=== PATIENT | female | born 1990 | race Caucasian/White ===

== ENCOUNTER → 2025-01-22 | Outpatient (CLI) | payer SELFPAY | END | disposition home or self-care (01) | LOC: LABSPEC 11:26 | PROVIDERS: Referring Provider Advanced Practice Midwife; Visit Provider Advanced Practice Midwife | DX: Z34.00 Encounter for supervision of normal first pregnancy, unspecified trimester (principal) | CPT/HCPCS: 87086; 87088 ==

== ENCOUNTER → 2025-02-08 | Outpatient (CLI) | payer SELFPAY | END | disposition home or self-care (01) | PROVIDERS: Referring Provider Obstetrics & Gynecology; Visit Provider Obstetrics & Gynecology | DX: R30.0 Dysuria (principal) | CPT/HCPCS: 36415; 82950; 86703; 86780; 87086; 87088 ==

== ENCOUNTER → 2025-02-19 | Outpatient (CLI) | payer SELFPAY ==
[2025-02-19 16:41] LABS: Hematocrit 34.2 % (37-47); Hemoglobin 11.4 g/dL (12.0-15.0); Immature Granulocytes Count 0.120 X10^3/uL (0.0-0.0); Mean Corp Hgb Conc 33.3 g/dL (32-36); Mean Corpuscular Volume 93.4 fL (81-99); Mean Platelet Vol. 12.4 fl (6.2-12.0); NRBC Flagged by Analyzer 0 % (0-5); Platelet Count 179 K/mm3 (150-450); RBC Distribution Width CV 12.7 % (11.6-14.6); RBC Distribution Width SD 43.8 fl (35.1-43.9); Red Blood Count 3.66 M/mm3 (4.2-5.4); White Blood Count 10.0 K/mm3 (4.4-11.0)
[2025-02-19 17:36] LABS: Glucose Challenge Gest 1H 50g 132 mg/dL (70-140); HIV Nonreactive (Nonreactive); Syphilis Antibodies Nonreactive (Nonreactive)
== END | disposition home or self-care (01) ==
PROVIDERS: Advanced Practice Midwife; Visit Provider Obstetrics & Gynecology
DX: Z34.92 Encounter for supervision of normal pregnancy, unspecified, second trimester (principal); Z13.1 Encounter for screening for diabetes mellitus
CPT/HCPCS: 36415; 82950; 85025; 86703; 86780

== ENCOUNTER → 2025-04-16 | Outpatient (CLI) | payer MEDICAID, SELFPAY | END | disposition home or self-care (01) | LOC: LABSPEC 15:54 | PROVIDERS: Referring Provider Advanced Practice Midwife; Visit Provider Advanced Practice Midwife | DX: Z34.03 Encounter for supervision of normal first pregnancy, third trimester (principal) | CPT/HCPCS: 87081 ==

== ENCOUNTER 2025-04-27 13:40 | Outpatient (CLI) | payer MEDICAID, SELFPAY ==
[2025-04-27 13:50] VITALS: RESP 18; TEMP 37.3
[2025-04-27 13:54] VITALS: BMI 24.9
[2025-04-27 13:57] VITALS: BP 114/59; PULSE 78
[2025-04-27 14:28] LABS: ROM Internal Control Test YES-OK TO RESULT pt. (Internal QC); ROM Patient Test Negative (Negative); Record Kit Lot#, ROM+ K3358
--- NOTE | 2025-04-27 15:01 | OB.TRI.PN_ITS ---
Progress Notes Date of Service: 04/27/25 Progress Note: Patient presents for triage evaluation secondary to decreased movement at 38.0 weeks FHT: 135 Moderate variability reactive no decelerations category I tracing [place]: occasional Contractions Assessment and plan: rom -, Reactive NST, reassuring maternal and status patient discharged to home to follow-up in office . See problem list details for additional plan information. Laboratory Studies: Laboratory Tests 04/27/25 Range/Units 14:15 Vag Amniotic Fld Detect Negative (Negative) Charges/Coding Multi Select Codes Urinary/Genital Urinary/Genital CPT Codes: 01863-36 non-stress test Interp Assessment & Plan (1) Decreased movement: COMMENT: reactive NST (2) UTI in : COMMENT: if second culture is pos, will need continuous abx in . culture collected 02/08 (3) Former smoker: COMMENT: Quit 2023, vaped intermittently (4) Supervision of normal first : COMMENT: PRR , girl Linda SYLVESTER 05/11/25, support person EMORY Gu(lives in [place]-[facility]) (5) : QUALIFIERS: Weeks of gestation: 37 weeks Qualified Code(s): Z3A.37 - 37 weeks gestation of COMMENT: GBS neg, NIPT, low risk, female, nl anatomy
== END 2025-04-27 15:05 | disposition home or self-care (01) ==
LOC: WPOUT 13:49 → WP 13:49
PROVIDERS: Referring Provider Advanced Practice Midwife; Visit Provider Advanced Practice Midwife
DX: O36.8130 Decreased fetal movements, third trimester, not applicable or unspecified (principal); Z3A.37 37 weeks gestation of pregnancy; Z87.891 Personal history of nicotine dependence
CPT/HCPCS: 59025; 59050; 84112; 99221; G0378

== ENCOUNTER 2025-05-06 10:54 | Inpatient (IN) | payer MEDICAID, SELFPAY ==
[2025-05-06] VITALS (45 sets, daily range): BP systolic 104–125; BP diastolic 60–75; PULSE 59–87; RESP 16; TEMP 36.7–37.4; O2SAT 96–100; BMI 24.7
[2025-05-06 11:56] LABS: Hematocrit 37.5 % (37-47); Hemoglobin 13.1 g/dL (12.0-15.0); Immature Granulocytes Count 0.100 X10^3/uL (0.0-0.0); Mean Corp Hgb Conc 34.9 g/dL (32-36); Mean Corpuscular Volume 89.1 fL (81-99); Mean Platelet Vol. 12.0 fl (6.2-12.0); NRBC Flagged by Analyzer 0 % (0-5); Platelet Count 184 K/mm3 (150-450); RBC Distribution Width CV 13.0 % (11.6-14.6); RBC Distribution Width SD 42.3 fl (35.1-43.9); Red Blood Count 4.21 M/mm3 (4.2-5.4); White Blood Count 13.7 K/mm3 (4.4-11.0)
[2025-05-06 12:48] LABS: Syphilis Antibodies Nonreactive (Nonreactive)
--- NOTE | 2025-05-06 15:13 | HP.PCM.OB_ITS ---
HPI - General General Date of Admission: 05/06/25 HPI Narrative NAGELA CARSON, is a 35 F who presents IAL regular ctx no vb lof good fm Maternal Data Information SYLVESTER Calculator Estimated Delivery Date Method Current WG Current Estimate 05/11/25 LMP (Certain) 39w 2d PFSH PFSH Home Medications ?Medication ?Instructions ?Recorded ?Last Taken ?Type multivit-min no.71-iron fum 28 cap PO 01/14/25 5 History mg-folate no.1 1 mg-dha 300 mg capsule (PNV-[place]) Allergy/AdvReac Type Severity Reaction Status Date / Time morphine Allergy Intermediate itching Verified 05/06/25 11:49 Family History Uncle Diabetes Paternal Surgical History Black teeth extracted History of tonsillectomy History of appendectomy Social History adopted: No household members: none housing: apartment current occupational status: employed 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, 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 current occupational exposures/hazards: No pets and animals: Yes pets and animals: dog(s) history of recent travel: Yes ([place]) out of state: Yes out of country: No Smoking Status: Former smoker quit date: 03/22/25 Electronic Cigarette Use: with nicotine alcohol intake: former year quit: 2022 substance use type: does not use well-balanced diet: daily or most days caffeine: No eating out: rarely or never during the past year weight has: increased > 10 lbs what type of physical activity do you participate in: walking and yoga frequency: 5-6 times per week duration: 15-30 minutes/day zeinab/quaker: None seatbelt use: always do you feel safe at home: Yes additional [facility] history[facility] to [facility] was History 1 Elective abortions Hx Para 0 Spontaneous abortions Hx # Term Pregnancies Ectopic pregnancies Hx # Pregnancies Multiple births # of living children Visit Details Expected Delivery Route/Plan Labor Preferences- CB/BF classes: [] labor support person: [] labor intervention preferences: [] pain management options preferred: [] cut cord/dad catch: [] : [] PP control planned: [] discussed possible routes of delivery and associated risks: [] special requests: [] Plans Covid status: [] Flu vaccine: [] Tdap vaccine: given Rhogam: na LARC form signed: declined movement and labor precautions reviewed. Problem list reviewed and updated with the most current plan of care details and appropriate orders placed. Relevant counseling for the gestational age provided. Continue routine care and follow up unless otherwise noted in visit notes/problem list details OB Flowsheet Initial Weight: 134 lb Date -?-?-?-?-?-?-?-?-?-?-?-?- EGA Weight BP Urine Prot -?-?-?-?-?-?-?-?-?-?-?-?- Glucose FHR FuHt Pres Dilation -?-?-?-?-?-?-?-?-?-?-?-?- Effaced St Visit Note 01/22/25 -?-?-?-?-?-?-?-?-?--?-?-?- 24w 3d 134 lb 8 oz (+8 oz) 111/66 -?-?-?-?-?-?-?-?-?-?-?-?- 140 24 -?-?-?-?-?-?-?-?-?-?-?-?- KW- transfer of care from [facility] and anatomy US reviewed. many questions answered today. feeling FM. no vb/cramping. discussed CBE classes and glucose next visit. 02/08/25 -?-?-?-?-?-?-?-?-?-?-?-?- 26w 6d 139 lb 6 oz (+5 lb 6 oz) 111/69 Negative -?-?-?-?-?-?-?-?-?-?-?-?- Negative 141 26 -?-?-?-?-?-?-?-?-?-?-?-?- JV- pt was at [facility] for dec fm. They do not have an L&D so only did heart tones. She does have an anterior placenta. She requests an ultrasound at 36 weeks. pt reassured. doing clean catch today for urinary frequency and mild dysuria. Had UTI earlier in in [place], so if this is another one will need continuous abx. 02/19/25 -?-?-?-?-?-?-?-?-?-?-?-?- 28w 3d 139 lb 6 oz (+5 lb 6 oz) 109/72 Negative -?-?-?-?-?-?-?-?-?-?-?-?- Negative 145 28 -?-?-?-?-?-?-?-?-?-?-?-?- SM- no vb lof go od fm no regular ctx questions answered 03/05/25 -?-?-?-?-?-?-?-?-?-?-?-?- 30w 3d 145 lb (+11 lb) 103/67 Negative -?-?-?-?-?-?-?-?--?-?-?-?- Negative 130 30 -?-?-?-?-?-?-?-?-?-?-?-?- KW- CBE classes and baby shower soon. no vb/lof/ctx. good movement. has ped picked out. 03/19/25 -?-?-?-?-?-?-?-?-?-?-?-?- 32w 3d 149 lb 8 oz (+15 lb 8 oz) 109/65 Negative -?-?-?-?-?-?-?-?-?-?-?-?- Negative 145 32 -?-?-?-?-?-?-?-?-?-?-?-?- KW- no vb/lof/ct x. good fm. Tdap and LARC many questions answered. 04/02/25 -?-?-?-?-?-?-?-?-?-?-?-?- 34w 3d 146 lb 9 oz (+12 lb 9 oz) 112/71 Negative -?-?-?-?-?-?-?-?-?-?-?-?- Negative 155 33 -?-?-?-?-?-?-?-?-?-?-?-?- SM- no vb lof go od fm n oregular ctx struggling with sleep 04/16/25 -?-?-?-?-?-?-?-?-?-?-?-?- 36w 3d 150 lb 2 oz (+16 lb 2 oz) 107/58 Negative -?-?-?-?-?-?-?-?-?-?-?-?- Negative 160 35 Cephalic 1 -?-?-?-?-?-?-?-?-?-?-?-?- 80 -2 KW- no vb/ lof/ctx. good fm. GBS today. 04/23/25 -?-?-?-?-?-?-?-?-?-?-?-?- 37w 3d 153 lb 2 oz (+19 lb 2 oz) 109/67 Negative -?-?-?-?-?-?-?-?-?-?-?-?- Negative 145 36 Cephalic 1 -?-?-?-?-?-?-?-?-?-?-?-?- 80 -2 KW- no vb/ lof/ctx. good fm. 04/30/25 -?-?-?-?-?-?-?-?-?-?-?-?- 38w 3d 155 lb (+21 lb) 120/75 Negative -?-?-?-?-?-?-?-?-?-?-?-?- Negative 155 38 Cephalic 1 -?-?-?-?-?-?-?-?-?-?-?-?- 80 -2 KW- no vb/ lof/ctx. good fm NST FHR Rate Baby A Baseline: 140 Variability:: Moderate Accelerations:: 15 x 15 Decelerations:: None NST Reactive:: Yes FHR Category:: Category I Uterine Activity:: q3-5 ROS Constitutional Constitutional: Reports systems reviewed and no addt'l complaints, except as documented ENT HEENT: Reports systems reviewed and no addt'l complaints, except as documented Cardiovascular Cardiovascular: Reports systems reviewed and no addt'l complaints, except as documented Respiratory/Chest Respiratory/Chest: Reports systems reviewed and no addt'l complaints, except as documented Gastrointestinal Gastrointestinal: Reports systems reviewed and no addt'l complaints, except as documented and nausea; Denies abdominal pain Genitourinary Genitourinary: Reports systems reviewed and no addt'l complaints, except as documented, contractions Details: present and frequency (regular ) and movement Details: present Musculoskeletal Musculoskeletal: Reports systems reviewed and no addt'l complaints, except as documented Integumentary Integumentary: Reports as per HPI Neurologic Neurologic: Reports systems reviewed and no addt'l complaints, except as documented Endocrine Endocrinology: Reports systems reviewed and no addt'l complaints, except as documented Vital Signs Vital Signs Vital Signs: 05/06/25 10:36 05/06/25 10:36 05/06/25 10:39 Temperature Temperature Source Pulse Rate 87 Respiratory Rate Blood Pressure 123/75 H BP Systolic 123 BP Diastolic 75 Pulse Ox 100 05/06/25 10:39 05/06/25 10:41 05/06/25 10:41 Temperature Temperature Source Pulse Rate 75 79 Respiratory Rate Blood Pressure BP Systolic BP Diastolic Pulse Ox 97 05/06/25 10:42 05/06/25 10:42 05/06/25 10:42 Temperature Temperature Source Tympanic Pulse Rate Respiratory Rate 16 Blood Pressure BP Systolic BP Diastolic Pulse Ox 98 05/06/25 10:42 05/06/25 10:46 05/06/25 10:46 Temperature 98.3 F Temperature Source Pulse Rate 83 Respiratory Rate Blood Pressure BP Systolic BP Diastolic Pulse Ox 99 05/06/25 10:51 05/06/25 10:51 05/06/25 10:56 Temperature Temperature Source Pulse Rate 86 78 Respiratory Rate Blood Pressure BP Systolic BP Diastolic Pulse Ox 97 05/06/25 10:56 05/06/25 11:01 05/06/25 11:01 Temperature Temperature Source Pulse Rate 80 Respiratory Rate Blood Pressure BP Systolic BP Diastolic Pulse Ox 98 99 05/06/25 11:06 05/06/25 11:06 05/06/25 14:31 Temperature Temperature Source Temporal Pulse Rate 82 Respiratory Rate Blood Pressure BP Systolic BP Diastolic Pulse Ox 98 05/06/25 14:31 Temperature 98.5 F Temperature Source Pulse Rate Respiratory Rate Blood Pressure BP Systolic BP Diastolic Pulse Ox Weight Weight: 153 lb Body Mass Index (BMI) 24.7 Physical Exam Const alert, oriented x3 and healthy appearing Constitutional Narrative: uncomfortable with contractions HEENT normocephalic and moist oral mucous membranes Head and Scalp: atraumatic Neck full ROM, no lymphadenopathy, supple and thyroid normal General: trachea midline Thyroid: thyroid normal Lymph Lymphatic: no lymphadenopathy noted Chest inspection of chest normal Resp normal respiratory effort Cardio regular rate GI soft to palpation and non-tender GI Narrative: gravid Inspection: gravid external exam normal Bimanual Exam - Vag & Uterus: uterus non-tender Manual OB Exam: estimated gestational size appropriate, presentation cephalic, dilated, effaced and station Extremity normal to inspection General Extremity: Negative for edema Skin no rashes or lesions noted Neuro deep tendon reflexes 2+ bilaterally Motor Exam: strength 5/5 throughout and clonus absent Psych mental status grossly normal Labs Labs Labs: Blood Type O POSITIVE Antibody Screen NEGATIVE Hct, (37-47) 37.5 % Hgb, (12.0-15.0) 13.1 g/dL Syphilis Total Ab, (Nonreactive) Nonreactive HIV 1&2 Antibody, (Nonreactive) Nonreactive Glucose 1 Hr 50 gm, (70-140) 132 mg/dL Assessment & Plan (1) UTI in : COMMENT: if second culture is pos, will need continuous abx in . culture collected 02/08 (2) Former smoker: COMMENT: Quit 2023, vaped intermittently (3) Supervision of normal first : COMMENT: PRR , girl Linda SYLVESTER 05/11/25, support person DANIELLEJose Gu(lives in [place]-[facility]) (4) : QUALIFIERS: Weeks of gestation: 38 weeks Qualified Code(s): Z3A.38 - 38 weeks gestation of COMMENT: GBS neg, NIPT, low risk, female, nl anatomy (5) Active labor at term: PLAN: Plan Patient presents IAL, plan expectant management for , pitocin/AROM PRN if needed. Pain management: minimal interventin. GBS neg. Management of any complications: none I have reviewed the [facility] and made any clinically relevant updates.
--- NOTE | 2025-05-06 15:23 | OB.VAGDELI_ITS ---
Assessment & Plan (1) Active labor at term: (2) Decreased movement: COMMENT: reactive NST (3) UTI in : COMMENT: if second culture is pos, will need continuous abx in . culture collected 02/08 (4) Former smoker: COMMENT: Quit 2023, vaped intermittently (5) Supervision of normal first : COMMENT: PRR , girl Linda SYLVESTER 05/[birth year]/25, support person EMORY Gu(lives in [place]-[facility]) (6) : QUALIFIERS: Weeks of gestation: 38 weeks Qualified Code(s): Z3A.38 - 38 weeks gestation of COMMENT: GBS neg, NIPT, low risk, female, nl anatomy (7) Vaginal delivery: COMMENT: SM IAL 39 girl linda Maternal Data Information SYLVESTER Calculator Estimated Delivery Date Method Current WG Current Estimate 05/11/25 LMP (Certain) 39w 3d Vaginal Delivery Maternal Presentation Maternal Presentation: see assessment and plan Vaginal Delivery Information Procedure Performed: Spontaneous Vaginal Delivery Surgeon/Practitioner: Shauna Mcknight Date of Procedure: 05/06/25 Type of anesthesia: None Findings Description of procedure: Patient began pushing and delivered the head in the MUSTAPHA presentation. The head was delivered atraumatically and a loose nuchal cord was delivered over the head. The anterior and posterior shoulders delivered without complication followed by the rest of the infant and the was placed on the maternal abdomen. Delayed cord clamping was employed for approximately 60 seconds. Cord was clamped and cut and gentle traction was applied to the cord and the placenta delivered spontaneously immediately following it was noted to be intact with three-vessel cord. The perineum and vagina were inspected and noted to have no laceration. EBL was 100 cc. Patient and infant tolerated delivery well. 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
--- NOTE | 2025-05-06 15:24 | PCM.DC ---
Discharge Instructions DC O2, CPAP, BIPAP needs Home O2 Discharge instructions: No Dressing / Incision Discharge Activity: Return to Normal Activity, May Not Drive (while taking narcotic pain medications.) and May Shower May resume sexual activity in: 4-6 weeks Dressing / Incision Call your doctor if your incision/area has: Continuous Slow Oozing, Sudden Increased Bleeding, Increased Pain/ Swelling, Increased Redness and Foul Smelling Discharge Follow Up Care Please Follow Up With: Shauna Mcknight MD When: Call [phone] to make an appointment with your doctor in 6 weeks. If you had elevated blood pressure or 4th degree laceration, you will need to be seen in 2 weeks. Test Results: Test results from this visit will be discussed in further detail at your follow-up appointment, if applicable. Discharge Plan Admission Admit Date/Time: 05/06/25 10:54 Attending Provider: Shauna Mcknight Primary Care Provider: Hayes Physician,Silva Primary Discharge Orders/Prescriptions Prescriptions: No Action PNV-Gamaliel 28-1-300 mg capsule PO Referrals / Follow Up: Care Physician,No Primary [Primary Care Provider, Medical] Disposition Disposition (needs filled in before D/C Order can be placed): Home, Self Care
[2025-05-06] MEDS: Oxytocin 15 Units/NS 250ml 15 UNITS/250 ML IV.SOLN 334 UNITS IV (15:55)
[2025-05-06] MEDS: Oxytocin 15 Units/NS 250ml 15 UNITS/250 ML IV.SOLN 83 UNITS IV (16:40)
[2025-05-07 03:28] VITALS: BP 99/55; PULSE 62; RESP 16; TEMP 36.7; O2SAT 97; O2SAT 98
[2025-05-07 07:59] VITALS: BP 109/58; PULSE 58
[2025-05-07 08:00] VITALS: BP 109/58; PULSE 58; RESP 16; TEMP 36.6; O2SAT 97
--- NOTE | 2025-05-07 10:56 | PCM.PN.OB ---
Subjective Subjective Patient doing well without complaints. Tolerating PO. Ambulating and voiding without difficulty. feeding well. Denies chest pain, shortness of breath, calf pain/swelling, fevers, chills, lightheadedness. Objective Data Objective Data Vital Signs: Vital Signs Temp Pulse Resp BP Pulse Ox O2 Del Method 97.8 F 58 L 16 109/58 L 97 Room Air 05/07/25 08:00 05/07/25 08:00 05/07/25 08:00 05/07/25 08:00 05/07/25 08:00 05/07/25 08:00 Oxygen Delivery Method Room Air Weight: 153 lb Body Mass Index (BMI) 24.7 Intake & Output: Intake and Output for Last 24 Hours 05/05/25 05/06/25 05/07/25 23:59 23:59 23:59 Intake Total 500 / 500 Output Total 100 / 100 Balance 400 / 400 Lab / Micro Data 05/06/25 11:35 Labs: Laboratory Results - last 24 hr 05/06/25 11:35: WBC 13.7 H, RBC 4.21, Hgb 13.1, Hct 37.5, MCV 89.1, MCH 31.1, MCHC 34.9, RDW Std Deviation 42.3, RDW Coeff of Marko 13.0, Plt Count 184, MPV 12.0, Immature Gran % (Auto) 0.700, Neut % (Auto) 79.7 H, Lymph % (Auto) 13.3 L, [place] % (Auto) 5.3, Eos % (Auto) 0.7, Baso % (Auto) 0.3, Absolute Neuts (auto) 10.9 H, Absolute Lymphs (auto) 1.82, Nucleated RBC % 0, Syphilis Total Ab Nonreactive, Blood Type O POSITIVE, Antibody Screen NEGATIVE ROS Constitutional Constitutional: Reports systems reviewed and no addt'l complaints, except as documented Cardiovascular Cardiovascular: Reports systems reviewed and no addt'l complaints, except as documented Respiratory/Chest Respiratory/Chest: Reports systems reviewed and no addt'l complaints, except as documented Gastrointestinal Gastrointestinal: Reports systems reviewed and no addt'l complaints, except as documented Physical Exam Const alert, oriented x3 and no apparent distress HEENT Head and Scalp: atraumatic Resp normal respiratory effort GI soft to palpation and non-tender Bimanual Exam - Vag & Uterus: uterus non-tender Uterus Palpation: uterus fundus firm (below Umbilicus) Assessment & Plan (1) Vaginal delivery: COMMENT: SM IAL 39 girl marina PLAN: Plan s/p PPD # 1 1. routine post delivery care 2. breast feeding- support given 3. rh positive 4. rubella immune
[2025-05-07 12:00] VITALS: BP 109/65; PULSE 62; RESP 18; TEMP 37.1; O2SAT 98
[2025-05-07 12:29] VITALS: BP 109/65; PULSE 75; O2SAT 94
[2025-05-07] MEDS: MEASLES,MUMPS,RUBELLA VACC/PF 0.5 ML SC (13:50)
== END 2025-05-07 17:15 | disposition home or self-care (01) | DRG 560 ==
LOC: WPOUT 11:07 → WP 11:07
PROVIDERS: Admitting Provider Obstetrics & Gynecology; Referring Provider Obstetrics & Gynecology; Visit Provider Obstetrics & Gynecology
DX: O69.81X0 Labor and delivery complicated by cord around neck, without compression, not applicable or unspecified (principal); Z37.0 Single live birth; O36.8130 Decreased fetal movements, third trimester, not applicable or unspecified; Z3A.38 38 weeks gestation of pregnancy; Z87.891 Personal history of nicotine dependence; Z87.440 Personal history of urinary (tract) infections
CPT/HCPCS: 59025; 59050; 85025; 86780; 86850; 86900; 86901; 99221; G0378